=== PATIENT | male | born 1960 | race Caucasian/White ===

== ENCOUNTER 2017-04-11 08:13 | Inpatient (IN) | payer OTHER, SELFPAY ==
--- NOTE | ~2017-04-11 | HP ---
History And Physical [place] [id number] [facility]. [address] NAME: ROGELIO MORALES : 56 STATUS : REG ER PAT#: [id number] AGE: 56 ADM/REG DATE : 04/11/17 MR#: [id number] REPORT SERV DATE: 04/11/17 DICTATED BY: ZENON ANGUIANO DATE: 04/11/17 REPORT STATUS : Draft TRANSCRIBED BY: MODL DATE: 04/11/17 DATE OF ADMISSION: 04/11/2017 CHIEF COMPLAINT: Right-sided arm weakness. HISTORY OF PRESENT ILLNESS: The patient is a very pleasant 56-year-old white male, who has a longstanding history of tobacco abuse, previously diagnosed with diabetes mellitus, hypertension, and a remote history of pancreatitis. The patient presents today stating for the last 7 days, he has had intermittent weakness and numbness of his right arm. He failed to seek medical care until today. Today, he states it is okay, it is a little numb and weak, but really not too bad. He continues to smoke two packs per day. He has not had any lower extremity weakness. He did not have any speech difficulties. No swallowing difficulties and no visual problems. I believe he has been noncompliant with his medical regimen. He is supposed to be on diabetes medications but I do not see those listed here and when I asked him about it, he states he does not recall the last time he took them. He does not really take any of his medications. He is fairly unclear as to what the reasons are as to when the last time he took them. PAST MEDICAL HISTORY: 1. Positive for pancreatitis. 2. Pancreatic pseudocyst. 3. Peptic ulcer disease. 4. Diabetes mellitus. 5. Hypertension. 6. Polycythemia. 7. Tobacco abuse. 8. Hypertension. ALLERGIES: NO KNOWN DRUG ALLERGIES. PAST SURGICAL HISTORY: He has had a 1. Cholecystectomy. 2. And a reconstructive jaw. SOCIAL HISTORY: He smokes 2 packs per day. He does not drink alcohol. He has not drank in over 25 years. 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 FAMILY HISTORY: His father , he does not know why. His mom has breast cancer, but she is living. HOME MEDICATIONS: Include Goody's powders and Prinivil 40 daily. REVIEW OF SYSTEMS: Full 10-point review of systems obtained. Pertinent positives already mentioned in the HPI. PHYSICAL EXAMINATION: History And Physical [address] [address] NAME: ROGELIO MORALES : 56 STATUS : REG ER PAT#: [id number] AGE: 56 ADM/REG DATE : 04/11/17 MR#: [id number] REPORT SERV DATE: 04/11/17 DICTATED BY: ZENON ANGUIANO DATE: 04/11/17 REPORT STATUS : Draft TRANSCRIBED BY: ENA DATE: 04/11/17 VITAL SIGNS: Blood pressure 191/118 initially, currently 159/97. GENERAL: Well-developed white male. HEENT: Normocephalic, atraumatic. Throat is clear. NECK: Supple. No bruits are noted in the neck. HEART: Regular rate and rhythm without murmurs, rubs, or gallops. LUNGS: Grossly clear with good symmetrical air expansion. ABDOMEN: Soft, nontender, nondistended. Normoactive bowel sounds are noted. EXTREMITIES: Warm and dry without peripheral edema. Pulses are 2+. NEUROLOGIC: He is alert. He is oriented to person, place, and time. Speech is intact. Strength and tone 5/5 in all four extremities. He has diminished sensation in his right arm. SKIN: Skin is examined in detail. He has no current rashes or lesions. LAB AND X-RAY: EKG shows sinus rhythm with LVH. MRI of the brain shows a subacute watershed injury multifocal on the left with no hemorrhagic conversion consistent with acute left MCA ELIZABETH territory infarctions. Chest x-ray is essentially normal. Brain CT showed what looked like subtle defect in the left hemisphere, but could not rule out subarachnoid blood. Slight density in the MCA distribution in the right, probably some atherosclerotic change. Chemistry panel: Sodium 137, potassium 4, chloride 105, CO2 of 25, BUN and creatinine of 26 and 0.85, glucose is 304. Troponin is 0.07. H and H are 18 and 50, white count is 8.8, and platelets are 172. ASSESSMENT/PLAN: 1. Subacute left MCA infarct with subsequent right-sided arm symptoms. He has had symptoms now for almost 7 days. I am going to place him on aspirin and statin therapy. Allow permissive hypertension. We will have Neurology see him in consultation. We will add a carotid duplex. Echocardiogram with bubble study. Place him on tele. I considered doing an MRA of his brain. I think we will go ahead and do that. We may have to offer additional sedation as he is claustrophobic. We will get Nutrition to see him and await Neurologic recommendations. I do not think he needs PT at this point. 2. Poorly-controlled diabetes mellitus. Off all of his medications. We will have the tumbling and rolling supervisor see him. We will place him back on metformin and some Levemir. We will add sliding scale. We will check his A1c. 3. Hypertension uncontrolled. I wrote some parameters and orders for some p.r.n. clonidine if his blood pressure is over 190. He will need to be set on a good outpatient antihypertensive regimen prior to discharge. 4. Tobacco abuse. Continue to place him on the nicotine patch. Recommend cessation. 5. Previous pancreatitis. 6. Polycythemia likely secondary to ongoing tobacco abuse. 7. Medical noncompliance. The patient needs compliance with his medical regimen as well as tobacco cessation, multiple other life changes. Again I am going to have Nutrition see him and tumbling and rolling supervisor see him. We will continue to funeral planning counselor him and await Neurologic input. 8. Disposition pending above. History And Physical [address] [address] NAME: ROGELIO MORALES : 56 STATUS : REG ER PAT#: [id number] AGE: 56 ADM/REG DATE : 04/11/17 MR#: [id number] REPORT SERV DATE: 04/11/17 DICTATED BY: ZENON ANGUIANO DATE: 04/11/17 REPORT STATUS : Draft TRANSCRIBED BY: ENA DATE: 04/11/17 MARIBEL/ENA Zenon Anguiano M.D. / [id number] CC: Rick Segal Jr., D.O.
--- NOTE | ~2017-04-11 | OP ---
Record Of Operation [facility] [address] [place]. [address] NAME: ROGELIO MORALES : 56 STATUS : ADM IN PAT#: [id number] AGE: 56 ADM/REG DATE : 04/11/17 MR#: [id number] REPORT SERV DATE: 04/15/17 DICTATED BY: SALVADOR LEVIN DATE: 04/15/17 REPORT STATUS : Draft TRANSCRIBED BY: MODL DATE: 04/15/17 DATE OF PROCEDURE: 04/15/2017 PREOPERATIVE DIAGNOSIS: Left carotid stenosis with stroke. POSTOPERATIVE DIAGNOSIS: Left carotid stenosis with stroke. PROCEDURE: Left carotid endarterectomy. SURGEON: Salvador Levin M.D. MASSAGE THERAPY INSTRUCTOR: Carmenza. ANESTHESIA: General. COMPLICATIONS: None. ESTIMATED BLOOD LOSS: 100 mL. HISTORY: The patient is a 56-year-old male, who presented with left hemispheric stroke and a high-grade left carotid stenosis. Study benefit from left carotid endarterectomy. This was discussed with the patient in detail. He expressed understanding and desired to proceed. DESCRIPTION OF PROCEDURE: The patient was taken to the operating room and placed in the supine position. He was given general anesthesia without complication. A roll was placed under shoulders, head was turned to the right. An incision was created on the anterior border of sternocleidomastoid muscle taking care to be more than one fingerbreadth away from the angle of the mandible. Bovie cautery was used to dissect the subcutaneous tissues and platysma. Dissection was performed to identify the sternocleidomastoid muscle. Dissection was continued on the anterior border of it. Dissection was continued to identify the internal jugular vein. Dissection continued on the anterior border of it. The common facial vein was identified, ligated with silk ties and divided. Dissection was continued on the common carotid artery was identified. Continued dissection was performed distally, identifying the internal carotid artery beyond the area of disease. This was freed circumferentially and isolated with a vessel loop. The patient was given 6000 units of heparin intravenously. The common carotid artery was freed circumferentially and isolated with a vessel loop. The external carotid artery was freed circumferentially and isolated with a vessel loop as well. After more than three minutes of heparinization, the internal carotid artery was controlled with a vessel loop, followed by the common carotid artery, and external carotid artery. An 11 blade used to create an arteriotomy on the common carotid artery. This was extended longitudinally onto the internal carotid artery beyond the area of disease. Attempts were made to place a 14 and 12 shunt, though these did not pass easily. A 10 shunt was placed and good back bleeding was noted. This was then placed in the common carotid artery restoring flow to the brain. Endarterectomy was performed in a standard fashion with feathering of the proximal and distal end points and eversion endarterectomy on the external carotid artery. The endarterectomy site was freed of all Record Of Operation [address] [address] NAME: ROGELIO MORALES : 56 STATUS : ADM IN PAT#: [id number] AGE: 56 ADM/REG DATE : 04/11/17 MR#: [id number] REPORT SERV DATE: 04/15/17 DICTATED BY: SALVADOR LEVIN DATE: 04/15/17 REPORT STATUS : Draft TRANSCRIBED BY: ENA DATE: 04/15/17 loose debris. Once this was felt to be adequate, the arteriotomy was closed using 8 x 80 bovine pericardial patch and running 6-0 Prolene suture. Prior to completion, the shunt was pulled from the lateral aspect. The internal and external carotids were back bled. The common carotid artery was flushed. The endarterectomy site was copiously irrigated. The closure was completed and flow restored to the external carotid artery, then after more than five heartbeats to the internal carotid artery. A single bleeding point on the closure was controlled with additional 6-0 Prolene suture. There were normal Doppler signals in the common carotid, external carotid, and internal carotid arteries. Hemostasis was assured. The subcutaneous tissues and platysma were closed with 2-0 Vicryl suture. Skin was closed with 4-0 Monocryl suture and Dermabond dressing was applied. The patient tolerated the procedure well. He will be extubated in the operating room, and if neurologically stable, taken to recovery. YEYO/ENA Salvador Levin M.D. / [id number] CC: Manas Quintanilla M.D.
--- NOTE | ~2017-04-11 | DS ---
Discharge Summary [facility] [address] [facility] [place]. [address] NAME: ROGELIO OMRALES : 56 STATUS : DIS IN PAT#: [id number] AGE: 56 ADM/REG DATE : 04/11/17 MR#: [id number] REPORT SERV DATE: 04/16/17 DICTATED BY: PALOMO ALTAMIRANO DATE: 04/16/17 REPORT STATUS : Draft TRANSCRIBED BY: MODL DATE: 04/16/17 ADMISSION DATE: 04/11/2017 DISCHARGE DATE: 04/16/2017 DISCHARGE DIAGNOSES: 1. Subacute left middle cerebral artery and anterior cerebral artery territory watershed cerebrovascular accident. 2. Left internal carotid stenosis, status post a left carotid endarterectomy on 04/15/2017. 3. Diabetes type 2, uncontrolled, with hemoglobin A1c of 12.5. 4. Hypertension. 5. Ongoing tobacco use. 6. Chronic systolic heart failure with an ejection fraction of 30%. 7. Mildly dilated aortic root at 4.2 cm. 8. History of medical noncompliance. DISCHARGE MEDICATIONS: Goody's powders daily p.r.n., aspirin 325 mg daily, Lipitor 80 mg at bedtime, Plavix 75 mg daily, Prinivil 5 mg daily, Habitrol 21 mg daily patch, metformin XR 1000 mg daily, Levemir 18 units subcutaneously at bedtime, Percocet 5/325 two tablets every four hours p.r.n. for pain. HISTORY OF PRESENT ILLNESS: This is a very pleasant 56-year-old white male who presents with right-sided arm weakness. Please see initial H and P of Dr. Margie Levin. The patient admitted to Hospitalist Service for further evaluation and treatment. Initially, lab work was ordered and followed. Imaging studies were ordered. Neurology consultation was placed and he was allowed to have some permissive hypertension with the findings of subacute left MCA stroke. CONSULTANTS DURING THIS ADMISSION: Included Neurology, Dr. Jaja Sanders and Vascular Surgery, Dr. Salvador Levin. PROCEDURES AND IMAGING DURING THIS ADMISSION: Included initial CT of the brain that showed septal defect in the left hemisphere, small amount of subarachnoid blood. Question slight density to the MCA distribution on the right, probably some mild atherosclerotic change, but no evidence of acute infarct or bleed. Recommending MRI of the brain that showed acute watershed injury, multifocal on the left, no obvious hemorrhage. A carotid ultrasound that showed compatible category 3 disease, greater than 70% stenosis involving the left internal carotid artery. No significant stenosis on the right. An MRI of the head, minor atherosclerotic features identified, intracranial study, but otherwise normal. An echocardiogram that showed an ejection fraction of 30%, severe global systolic dysfunction, mildly dilated aortic root at 4.2 cm. Surgery was performed on 04/15/2017, left carotid endarterectomy. HOSPITAL COURSE: After being seen by Neurology, aspirin, Plavix, and Lipitor were initiated and the above-described imaging was all performed and he was found to have the stenosis on the carotids and so consultation was placed to Vascular Surgery, Dr. Salvador Levin, who Discharge Summary [address] [address] NAME: ROGELIO MORALES : 56 STATUS : DIS IN [facility]#: [id number] AGE: 56 ADM/REG DATE : 04/11/17 MR#: [id number] REPORT SERV DATE: 04/16/17 DICTATED BY: PALOMO ALTAMIRANO DATE: 04/16/17 REPORT STATUS : Draft TRANSCRIBED BY: NEA DATE: 04/16/17 after discussion with the patient determined to proceed with a carotid endarterectomy. The patient was actually improved from the weakness standpoint and initially was actually going out to smoke with the assistance of his family and he was counseled numerous times about the need to quit smoking going forward as this will only be a detriment to him. He was seen by Diabetes Education during this admission as his diabetes was quite out of control and he has been apparently out of his medications for several months, but he underwent the left carotid endarterectomy, recovered well in the cardiovascular intensive care unit. His blood pressure medicine was able be resumed, although at a much lower dose, and a prescription has been written for that. He was placed on Levemir insulin and metformin and given instructions and checking his blood sugar. He continued to do well and was felt safe for discharge home on 04/16/[address] Salvador Levin. He will follow up with him in two weeks. I have instructed him to follow up with his primary care in two to three weeks and he will have a Cardiology appointment in two to four weeks after discharge as well. Questions were answered extensively at bedside with both the patient and his . They were in agreement with this plan going forward. Please note that greater than 30 minutes were spent on this discharge for medication teaching, followup planning, and further disposition. CSC/MODL Palomo Altamirano NP / [id number] CC: Maryjo Cooper Jr., D.OShelley
--- NOTE | ~2017-04-11 | CN ---
Consultation Report [facility] [address] [place]. [address] NAME: ROGELIO MORALES : 56 STATUS : ADM IN [facility]#: [id number] AGE: 56 ADM/REG DATE : 04/11/17 MR#: [id number] REPORT SERV DATE: 04/11/17 DICTATED BY: DATE: REPORT STATUS : Draft TRANSCRIBED BY: MODL DATE: 04/11/17 NEUROLOGY CONSULTATION DATE OF CONSULTATION: 04/11/2017 REASON FOR CONSULT: Stroke. HISTORY OF PRESENT ILLNESS: This is a 56-year-old male who presented to [facility] secondary to 1 week duration of intermittent left upper extremity numbness with the symptom mostly in the left upper extremity. Reports the symptom is intermittent. No aggravating or relieving factor was otherwise noted. The patient denies similar symptoms in the past. Denies diplopia. Denies any dysarthria, dysphagia, or language difficulties. Denies any focal weakness. The patient reports he unfortunately ran out of his blood pressure medication for the past two weeks and as a result, has not been taking any blood pressure medication. The patient also has had a history of diabetes and is not compliant with diabetic medications. Otherwise the patient denies recent illness, fever, chills, nausea, vomiting, chest pain, or shortness of breath. PAST MEDICAL HISTORY: The patient's past medical history is significant for hypertension, diabetes, and noncompliant with medications. FAMILY HISTORY: Significant for mother with breast cancer. SOCIAL HISTORY: The patient does have ongoing tobacco usage. The patient, upon arrival to the floor, immediately went out to smoke. The patient denies alcohol or illicit drug usage. At the time of evaluation, the patient was supposed to be taking lisinopril but he ran out of medication for the past two weeks. The patient, otherwise, reports no known drug allergies. REVIEW OF SYSTEMS: Negative except for those mentioned in the HPI. PHYSICAL EXAMINATION: VITAL SIGNS: At the time of evaluation, the patient was noted to have vital signs with T- max of 98.2, heart rate of 106, respiration of 16, and blood pressure of 144 to 191 over 60 to 118. GENERAL: The patient is well developed, well nourished, in no acute distress. CARDIOVASCULAR: Regular rate and rhythm. No carotid bruits were otherwise auscultated. PULMONARY: Examination was clear to auscultation bilaterally. NEUROLOGICAL: Generally the patient is alert and oriented to person, place, year, and month. Follows simple and two-step commands. No dysarthria. No aphasia was otherwise noted. Intact registration and recall. Cranial nerves 2 through 12, pupils equal, round, and reactive to light. Extraocular eye movement was noted to be intact. Symmetrical facial expression. Sensation midline. Tongue normal. Normal palatal movement. Normal hearing. Consultation Report [address] [place]. [address] NAME: ROGELIO MORALES : 56 STATUS : ADM IN PAT#: [id number] AGE: 56 ADM/REG DATE : 04/11/17 MR#: [id number] REPORT SERV DATE: 04/11/17 DICTATED BY: DATE: REPORT STATUS : Draft TRANSCRIBED BY: MODWilly DATE: 04/11/17 The patient was noted to have no visual neglect. Intact peripheral vision. A 5/5 bilateral upper and lower extremity strength. Reports symmetrical sensation bilaterally. The patient was noted to have normal [id number]-[id number] examination without ataxia. Deep tendon reflex was mildly hyperreflexic 3+ throughout with the patient demonstrated normal stable gait. LABORATORY STUDIES: Demonstrates sodium 137, potassium 4.0, chloride 105, bicarb of 25, BUN of 26, creatinine of 0.85, glucose of 304, calcium of 8.9, and magnesium 2.1. Troponin of 0.07. Hemoglobin A1c and fasting lipid panel is pending. The patient demonstrated white blood cell count of 8.8, hemoglobin of 18.0, hematocrit of 50.0, and platelet count of 172. At the time of evaluation, CT scan shows subtle left parietal sulci abnormalities concerning for acute stroke with the patient also noted to have hypoattenuation concerning for acute stroke in the left frontal area. MRI of the brain does demonstrate embolic stroke in the watershed area in the left MCA distribution and left frontal as well as left parietal area. No hemorrhage was otherwise noted. No edema was seen. IMPRESSION: 1. Stroke in the left MCA distribution area, appeared to be embolic. Concern for possible carotid disease. The patient was noted to be medication noncompliant. We will obtain echocardiogram as well as carotid Doppler study. Check fasting lipid panel and hemoglobin A1c. Counseled the patient regarding medication compliance as well as start the patient on aspirin and Plavix as well as Lipitor. The patient's current NIH stroke scale is 0. 2. Hypertension. 3. Diabetes. 4. Tobacco abuse. Counseled the patient regarding tobacco cessation. RECOMMENDATIONS: 1. No PT/OT or Speech Therapy evaluation secondary to lack of motor deficits. 2. Hypertension and diabetes management as per hospitalist. 3. Echocardiogram which is pending. 4. Aspirin, Plavix, and Lipitor. 5. Carotid Doppler study which is pending. 6. Counseled the patient regarding tobacco cessation. [facility]/MODL Troy Sanders MD / [id number] CC: Margie Levin M.D. Consultation Report [address] [address] NAME: ROGELIO MORALES : 56 STATUS : ADM IN [facility]#: [id number] AGE: 56 ADM/REG DATE : 04/11/17 MR#: [id number] REPORT SERV DATE: 04/11/17 DICTATED BY: DATE: REPORT STATUS : Draft TRANSCRIBED BY: MODL DATE: 04/11/17 Rick Segal Jr., D.O.
[2017-04-11 07:42] LABS: BASOPHILS 0.7 %; BASOPHILS ABSOLUTE 0.06 10/3/uL (0.0-0.16); EOSINOPHILS 3.4 %; ER CBC TAT 0 Hrs 03 Mins; IMMATURE GRANULOCYTES 1.4 %; IMMATURE GRANULOCYTES ABSOLUTE 0.12 10/3/uL (0.0-0.11); LYMPHOCYTES 11.4 %; MANUAL DIFF NO %; MEAN CORPUSCULAR HEMOGLOB 32.3 pg (26.0-34.0); MEAN CORPUSCULAR VOLUME 89.6 fL (80-100); MEAN PLATELET VOLUME 9.6 fL (9.2-13.0); MONOCYTES ABSOLUTE 0.79 10/3/uL (0.21-1.20); NEUTROPHILS 74.1 %; NEUTROPHILS ABSOLUTE 6.53 10/3/uL (2.02-8.40); PLATELET COUNT 172 10/3/uL (150-400); RBC DISTRIBUTION WIDTH 13.4 % (12.0-16.0); RED CELL COUNT 5.58 10/6/uL (4.7-6.1); WHITE BLOOD CELLS 8.8 10/3/uL (4.5-10.5)
[2017-04-11 07:48] LABS: PROTIME (NOT ORD) 12.6 SEC (12.0-14.5)
[2017-04-11 07:58] LABS: BUN (BLOOD UREA NITROGEN) 26 MG/DL (6-23); CALCIUM, SERUM 8.9 MG/DL (8.5-10.4); CHEST PAIN PROFILE TAT 0 Hrs 19 Mins; CHLORIDE, SERUM 105 MMOL/L (96-112); CO2 (CARBON DIOXIDE) 25 MMOL/L (24-34); CREATININE 0.85 MG/DL (0.70-1.30); GFR AFRICAN AMERICAN 111 ML/MIN (>=60); GFR NON AFRICAN AMERICAN 96 ML/MIN (>=60); GLUCOSE, SERUM 304 MG/DL (60-99); SODIUM, SERUM 137 MMOL/L (135-148); TROPONIN I 0.07 NG/ML (<0.05)
[2017-04-11] MEDS ORDERED: PRIN20 PO (08:33)
[2017-04-11] MEDS ORDERED: GOODY'S EX-STR1 EAC1 PO (08:34)
[2017-04-11 17:10] LABS: CHOL/HDL RATIO(NOT ORDER) 6.2 (0-5)
[2017-04-11 17:11] LABS: TROPONIN I 0.06 NG/ML (<0.05)
[2017-04-12 13:35] LABS: ASCORBIC ACID (UR NOT ORDER) NEG (NEG); BILIRUBIN, URINE NEGATIVE (NEG); KETONE, URINE NEGATIVE (NEG); LEUKOCYTE ESTERASE(NOT OR NEG (NEG); WBC (NOT ORDERED) (RFLEX) < 1 (0-5)
[2017-04-13 05:05] LABS: BASOPHILS 0.7 %; BASOPHILS ABSOLUTE 0.05 10/3/uL (0.0-0.16); EOSINOPHILS 5.3 %; EOSINOPHILS ABSOLUTE 0.39 10/3/uL (0.0-0.53); HEMATOCRIT 46.9 % (40.0-51.0); HEMOGLOBIN 16.5 g/dL (13.6-17.8); IMMATURE GRANULOCYTES 1.5 %; IMMATURE GRANULOCYTES ABSOLUTE 0.11 10/3/uL (0.0-0.11); LYMPHOCYTES 20.1 %; LYMPHOCYTES ABSOLUTE 1.48 10/3/uL (0.67-4.30); MEAN CORPUS HGB CONC 35.2 g/dL (32.0-36.0); MEAN CORPUSCULAR HEMOGLOB 31.5 pg (26.0-34.0); MEAN CORPUSCULAR VOLUME 89.5 fL (80-100); MEAN PLATELET VOLUME 9.8 fL (9.2-13.0); MONOCYTES 8.7 %; MONOCYTES ABSOLUTE 0.64 10/3/uL (0.21-1.20); NEUTROPHILS 63.7 %; NEUTROPHILS ABSOLUTE 4.71 10/3/uL (2.02-8.40); PLATELET COUNT 183 10/3/uL (150-400); RBC DISTRIBUTION WIDTH 13.6 % (12.0-16.0); RED CELL COUNT 5.24 10/6/uL (4.7-6.1); WHITE BLOOD CELLS 7.4 10/3/uL (4.5-10.5)
[2017-04-13 05:08] LABS: MANUAL DIFF NO %
[2017-04-15 06:13] LABS: HEMATOCRIT 44.7 % (40.0-51.0)
[2017-04-15 06:24] LABS: CALCIUM, SERUM 8.3 MG/DL (8.5-10.4); CHLORIDE, SERUM 109 MMOL/L (96-112); CO2 (CARBON DIOXIDE) 25 MMOL/L (24-34); CREATININE 0.85 MG/DL (0.70-1.30); GFR AFRICAN AMERICAN 111 ML/MIN (>=60); GFR NON AFRICAN AMERICAN 96 ML/MIN (>=60); POTASSIUM, SERUM 3.8 MMOL/L (3.5-5.3); SODIUM, SERUM 140 MMOL/L (135-148)
[2017-04-15 06:25] LABS: BUN (BLOOD UREA NITROGEN) 22 MG/DL (6-23); GLUCOSE, SERUM 165 MG/DL (60-99)
[2017-04-16] MEDS ORDERED: ASAB PO (12:31)
[2017-04-16] MEDS ORDERED: LIPITOR80 MG PO (12:32)
[2017-04-16] MEDS ORDERED: HABIT21 TOP (12:33)
[2017-04-16] MEDS ORDERED: PLAVIX PO (12:33)
[2017-04-16] MEDS ORDERED: GLUCPH PO (12:34)
[2017-04-16] MEDS ORDERED: ENDOCET1 TAB PO (12:36)
[2017-04-16] MEDS ORDERED: LEVEMIR SC (12:36)
[2017-05-17] MEDS ORDERED: COREG6 PO (11:18)
[2017-05-19] MEDS ORDERED: GLUCOPHAGE1000 MG PO (17:03)
[2017-06-09] MEDS ORDERED: PRIN2.5 PO (09:39)
[2017-06-09] MEDS ORDERED: HABIT21 TOP (09:40)
[2017-06-09] MEDS ORDERED: PERCOCET 10/3251 TAB PO (09:40)
[2017-06-09] MEDS ORDERED: CORDARONE PO (17:17)
== END 2017-04-16 13:15 | disposition home or self-care (01) | DRG 38 ==
LOC: ER 08:13 → 2SO 14:11 → SDC/OF 04-15 09:07 → CVICU 04-15 11:21
PROVIDERS: Emergency Medicine; Internal Medicine; Surgery
PROC: 03CL0ZZ Extirpation of Matter from Left Internal Carotid Artery, Open Approach (ICD-10-PCS; principal; 2017-04-15 07:45)
DX: I63.412 Cerebral infarction due to embolism of left middle cerebral artery (principal); I50.22 Chronic systolic (congestive) heart failure; I11.0 Hypertensive heart disease with heart failure; I65.22 Occlusion and stenosis of left carotid artery; R29.700 NIHSS score 0; E11.65 Type 2 diabetes mellitus with hyperglycemia; I77.819 Aortic ectasia, unspecified site; F17.210 Nicotine dependence, cigarettes, uncomplicated; Z91.14 Patient's other noncompliance with medication regimen; Z79.82 Long term (current) use of aspirin; Z79.02 Long term (current) use of antithrombotics/antiplatelets; Z79.84 Long term (current) use of oral hypoglycemic drugs; Z79.4 Long term (current) use of insulin; Z79.899 Other long term (current) drug therapy
CPT/HCPCS: 70450; 70544; 70551; 71010; 80048; 80061; 81001; 82962; 83036; 83735; 84484; 85014; 85018; 85025; 85610; 85730; 87641; 88304; 93005; 93306; 93880; 96374; 99285; A9270-GY; J0690; J2370; J2405; J2710; J3010